=== PATIENT | female | born 1995 | race Caucasian/White ===

== ENCOUNTER 2016-12-09 16:10 | Emergency (ER) | payer OTHER ==
[2016-12-09 16:18] VITALS: BP 130/82
--- NOTE | 2016-12-09 17:23 | UC ---
Complaint Female HPI - HPI Summary HPI Summary: didn't have her menstrual period for 3 months, has done home test that was negative no other symptoms - History Of Current Complaint Chief Complaint: [facility] Stated Complaint: PERSONAL Time Seen by Provider: 12/09/16 16:14 Hx Obtained From: Patient Hx Last Menstrual Period: 10/11/16 Onset/Duration: Gradual Onset, Lasting Weeks - 12 Timing: Constant Severity Initially: Moderate Severity Currently: Moderate Character: Not Applicable Aggravating Factor(s): Nothing Alleviating Factor(s): Nothing Associated Signs And Symptoms: Positive: Negative - Allergies/Home Medications Allergies/Adverse Reactions: Allergies Allergy/AdvReac Type Severity Reaction Status Date / Time No Known Allergies Allergy Verified 12/09/16 16:18 Home Medications: Home Medications NK [No Home Medications Reported] 12/09/16 [History Confirmed 12/09/16] PMH/Surg Hx/FS Hx/Imm Hx Psychological History: Anxiety - Surgical History Surgery Procedure, Year, and Place: 6 ear surgeries- last ear surgery 09/2011. t /a 09/2011 - Family History Known Family History: Positive: Other - mother has chronic vertigo - Social History Alcohol Use: None Substance Use Type: None Smoking Status (MU): Former Smoker Type: Cigarettes Amount Used/How Often: 1-2 CIGS Length of Time of Smoking/Using Tobacco: 2 YRS When Did the Patient Quit Smoking/Using Tobacco: month ago - Immunization History Most Recent Influenza Vaccination: no Vaccination Up to Date: Yes Review of Systems Constitutional: Negative Skin: Negative Eyes: Negative ENT: Negative Respiratory: Negative All Other Systems Reviewed And Are Negative: Yes Physical Exam Triage Information Reviewed: Yes Appearance: Well-Appearing, No Pain Distress, Well-Nourished Vital Signs: Initial Vital Signs Temp 98.1 F 12/09/16 16:14 Pulse 95 12/09/16 16:14 Resp 16 12/09/16 16:14 BP 130/82 12/09/16 16:14 Pulse Ox 100 12/09/16 16:14 Vital Signs Reviewed: Yes Eyes: Positive: Conjunctiva Clear ENT: Positive: Normal ENT inspection, Hearing grossly normal, Pharynx normal Neck: Positive: Supple, Nontender Respiratory: Positive: Chest non-tender, Lungs clear, Normal breath sounds Cardiovascular: Positive: RRR, No Murmur, Pulses Normal Abdomen Description: Positive: Nontender, No Organomegaly, Soft Bowel Sounds: Positive: Present Neurological Exam: Normal Neurological: Positive: Alert Skin Exam: Normal Complaint Female Dx - Differential Dx/Diagnosis Provider Diagnoses: amenorrhea Discharge - Discharge Plan Condition: Stable Disposition: HOME Referrals: Dipesh Marcelino MD [Medical Doctor] - DEMETRIUS Sierra [Primary Care Provider] - Additional Instructions: amenorrhea will check blood work , please call the office in 2 days for the results referral to stores clerk
[2016-12-09 20:12] LABS: Hematocrit 43 % (35-47); Hemoglobin 14.3 g/dl (12.0-16.0); Mean Corpuscular HGB Conc 34 g/dl (31-36); Mean Corpuscular Hemoglobin 29 pg (27-31); Mean Corpuscular Volume 88 fL (80-97); Mean Platelet Volume 9 um3 (7.4-10.4); Red Blood Count 4.87 10^6/ul (4.0-5.4); Red Cell Distribution Width 14 % (10.5-15); White Blood Count 8.9 10^3/ul (3.5-10.8)
[2016-12-09 20:24] LABS: Albumin 4.7 g/dL (3.2-5.2); BUN/Creatinine Ratio 12.5 (8-20); Calcium 9.8 mg/dL (8.6-10.3); EGFR African American 116.4 (>60); EGFR Non-African American 90.5 (>60); Globulin 3.2 g/dL (2-4); Potassium 3.8 mmol/L (3.5-5.0); Total Bilirubin 0.5 mg/dL (0.2-1.0); Total Protein 7.9 g/dL (6.4-8.9)
[2016-12-09 21:04] LABS: TSH (Thyroid Stimulating Horm) 2.1 mcIU/mL (0.34-5.60)
[2016-12-09 21:12] LABS: Prolactin 11.6 ng/mL (1.0-25.0)
== END 2016-12-09 17:37 | disposition home or self-care (01) ==
LOC: UCCORT 16:10
DX: N91.2 Amenorrhea, unspecified (principal); Z32.02 Encounter for pregnancy test, result negative; F41.9 Anxiety disorder, unspecified; Z87.891 Personal history of nicotine dependence
CPT/HCPCS: 36415; 80053; 82397; 84146; 84443; 84702; 85025; 99211; G0463